=== PATIENT | male | born 1945 | race Hispanic/Latino ===

== ENCOUNTER 2019-03-08 20:06 | Emergency (ER) | payer MEDICARE ==
--- NOTE | 2019-03-08 21:51 | EDPHYS ---
Physician Documentation [facility] Name: Renzo Tam Age: 73 yrs Sex: Male : 1945 Arrival Date: 03/08/2019 Time: 20:08 Bed 24 Private MD: Robe Momin E ED Physician Chris Alarcon HPI: 03/08 20:52 This 73 yrs old Male presents to ER via Ambulatory with complaints of Fever. pm1 20:52 The patient reports fever, that was measured at 101 degrees Fahrenheit. Onset: The pm1 symptoms/episode began/occurred today. Modifying factors: Recent medications: Other Is currently taking ear drops for an ear infection. Saw Dr. Momin yesterday. Associated signs and symptoms: Pertinent positives: cough, earache, Pertinent negatives: chest pain, headache, nausea, skin rash, shortness of breath, sore throat, vomiting. The patient has not experienced similar symptoms in the past. The patient has been recently seen by a physician: the patient's primary care provider, Diagnosed with ear infection and prescribed ear drops. Historical: - Allergies: 20:17 No Known Allergies; jd3 - Home Meds: 20:17 amlodipine oral [Active]; losartan oral oral [Active]; doxazosin oral oral [Active]; jd3 - PMHx: 20:17 High Cholesterol; Hypertension; jd3 - PSHx: 20:17 right shoulder sx - rotator cuff; jd3 - Immunization history:: Adult Immunizations up to date. - Coronavirus screen:: The patient has NOT traveled to [place], [place], or [place] in the past 14 days. The patient has NOT had contact with known/suspected case of Coronavirus? Proceed with normal triage procedures. - Social history:: Smoking status: Patient denies any tobacco usage or history of. - Ebola Screening: : Patient negative for fever greater than or equal to 101.5 degrees Fahrenheit, and additional compatible Ebola Virus Disease symptoms. ROS: 20:52 Eyes: Negative for injury, pain, redness, and discharge. pm1 20:52 Neck: Negative for injury, pain, and swelling, Cardiovascular: Negative for chest pain, palpitations, and edema. 20:52 Abdomen/GI: Negative for abdominal pain, nausea, vomiting, diarrhea, and constipation, Back: Negative for injury and pain, MS/Extremity: Negative for injury and deformity, Skin: Negative for injury, rash, and discoloration, Neuro: Negative for headache, weakness, numbness, tingling, and seizure. 20:52 Constitutional: Positive for body aches, fever. 20:52 ENT: Positive for ear pain, Negative for difficulty swallowing, difficulty handling secretions, hoarseness. 20:52 Respiratory: Positive for cough, Negative for shortness of breath, sputum production, wheezing. Exam: 20:52 Constitutional: This is a well developed, well nourished patient who is awake, alert, pm1 and in no acute distress. Head/Face: Normocephalic, atraumatic. Eyes: Pupils equal round and reactive to light, extra-ocular motions intact. Lids and lashes normal. Conjunctiva and sclera are non-icteric and not injected. Cornea within normal limits. Periorbital areas with no swelling, redness, or edema. 20:52 Neck: Trachea midline, no thyromegaly or masses palpated, and no cervical lymphadenopathy. Supple, full range of motion without nuchal rigidity, or vertebral point tenderness. No Meningismus. Chest/axilla: Normal chest wall appearance and motion. Nontender with no deformity. No lesions are appreciated. Cardiovascular: Regular rate and rhythm with a normal S1 and S2. No gallops, murmurs, or rubs. Normal PMI, no JVD. No pulse deficits. Respiratory: Lungs have equal breath sounds bilaterally, clear to auscultation and percussion. No rales, rhonchi or wheezes noted. No increased work of breathing, no retractions or nasal flaring. Abdomen/GI: Soft, non-tender, with normal bowel sounds. No distension or tympany. No guarding or rebound. No evidence of tenderness throughout. Back: No spinal tenderness. No costovertebral tenderness. Full range of motion. Skin: Warm, dry with normal turgor. Normal color with no rashes, no lesions, and no evidence of cellulitis. MS/ Extremity: Pulses equal, no cyanosis. Neurovascular intact. Full, normal range of motion. 20:52 ENT: External ear(s): are unremarkable, Ear canal(s): are normal, TM's: bulging, on the left, erythema, that is mild, on the left, Nose: is normal, Posterior pharynx: Airway: normal, no evidence of obstruction, Tonsils: bilaterally enlarged, with erythema, no exudate, no ulcerations, peritonsillar mass, is not appreciated. 20:52 Neuro: Orientation: is normal, Motor: is normal, moves all fours. Vital Signs: 20:17 BP 161 / 73; Pulse 81; Resp 17 S; Temp 99.0(O); Pulse Ox 95% on R/A; Weight 72.57 kg jd3 (R); Height 5 ft. 4 in. (162.56 cm) (R); Pain /; 22:19 BP 155 / 78; Pulse 80; Resp 18; Temp 98; Pulse Ox 100% on R/A; mg2 20:17 Body Mass Index 27.46 (72.57 kg, 162.56 cm) jd3 MDM: 20:38 Patient medically screened. pm1 21:49 Data reviewed: vital signs. Data interpreted: Pulse oximetry: on room air is 95 %. pm1 Interpretation: normal. Counseling: I had a detailed discussion with the patient and/or guardian regarding: the historical points, exam findings, and any diagnostic results supporting the discharge/admit diagnosis, lab results, the need for outpatient follow up, to return to the emergency department if symptoms worsen or persist or if there are any questions or concerns that arise at home. 03/08 20:52 Order name: Flu pm1 03/08 20:52 Order name: Strep pm1 03/08 20:52 Order name: Influenza Screen (A ; Complete Time: 21:47 EDMS 03/08 20:52 Order name: Group A Streptococcus Rapid Sc; Complete Time: 21:47 EDMS Administered Medications: 21:56 Drug: Rocephin (cefTRIAXone) 1 grams Route: IM; Site: right gluteus; mg2 22:10 Follow up: Response: No adverse reaction mg2 Disposition: 03/08/19 21:49 Discharged to Home. Impression: Streptococcal pharyngitis, Otitis media, unspecified, left ear. - Condition is Stable. - Discharge Instructions: Otitis Media, Adult, Strep Throat. - Prescriptions for Amoxicillin 500 mg Oral Capsule - take 1 capsule by ORAL route every 8 hours for 10 days; 30 tablet. Ultracet 37.5- 325 mg Oral Tablet - take 1 tablet by ORAL route every 6 hours - for up to 5 days; do not exceed 8 tablets per day.; 15 tablet. - Medication Reconciliation Form, Thank You Letter, Antibiotic Education, Prescription Opioid Use form. - Follow up: Emergency Department; When: As needed; Reason: Worsening of condition. Follow up: Private Physician; When: 2 - 3 days; Reason: Recheck today's complaints, Continuance of care, Re-evaluation by your physician. - Problem is new. - Symptoms have improved. Addendum: 03/10/2019 07:48 Co-signature as Attending Physician, Chris Alarcon MD I agree with the assessment and t w4 plan of care. Signatures: Dispatcher [employer] EDMS Darryl Suarez, JESSICA BALLISTICS TEACHER pm1 Dread Ibarra, RN RN jd3 Chris Alarcon MD MD tw4 Jerome Winn RN RN mg2 Corrections: (The following items were deleted from the chart) 02 21:50 21:49 03/08/2019 21:49 Discharged to Home. Impression: Streptococcal pharyngitis. pm1 Condition is Stable. Forms are Medication Reconciliation Form, Thank You Letter, Antibiotic Education, Prescription Opioid Use. Follow up: Emergency Department; When: As needed; Reason: Worsening of condition. Follow up: Private Physician; When: 2 - 3 days; Reason: Recheck today's complaints, Continuance of care, Re-evaluation by your physician. Problem is new. Symptoms have improved. pm1 22:21 21:50 03/08/2019 21:49 Discharged to Home. Impression: Streptococcal pharyngitis; mg2 Otitis media, unspecified, left ear. Condition is Stable. Forms are Medication Reconciliation Form, Thank You Letter, Antibiotic Education, Prescription Opioid Use. Follow up: Emergency Department; When: As needed; Reason: Worsening of condition. Follow up: Private Physician; When: 2 - 3 days; Reason: Recheck today's complaints, Continuance of care, Re-evaluation by your physician. Problem is new. Symptoms have improved. pm1
--- NOTE | 2019-03-08 21:51 | ER ---
Nurse's Notes [facility] Name: Renzo Tam Age: 73 yrs Sex: Male : 1945 Arrival Date: 03/08/2019 Time: 20:08 Bed 24 Private MD: Robe Momin E Diagnosis: Streptococcal pharyngitis;Otitis media, unspecified, left ear Presentation: 03/08 20:11 Presenting complaint: Patient states: "I have had a fever for 3-4 hours now. I had a jd3 recent ear infection, but nothing else. the fever was 101 before coming to the ER. The ear doctor gave me Cortisporin for both my ears.". Transition of care: patient was not received from another setting of care. Onset of symptoms was March 08, 2019. Risk Assessment: Do you want to hurt yourself or someone else? Patient reports no desire to harm self or others. Initial Sepsis Screen: Does the patient meet any 2 criteria? No. Patient's initial sepsis screen is negative. Does the patient have a suspected source of infection? No. Patient's initial sepsis screen is negative. Care prior to arrival: None. 20:11 Method Of Arrival: Ambulatory jd3 20:11 Acuity: GUIDO 4 jd3 Historical: - Allergies: 20:17 No Known Allergies; jd3 - Home Meds: 20:17 amlodipine oral [Active]; losartan oral oral [Active]; doxazosin oral oral [Active]; jd3 - PMHx: 20:17 High Cholesterol; Hypertension; jd3 - PSHx: 20:17 right shoulder sx - rotator cuff; jd3 - Immunization history:: Adult Immunizations up to date. - Coronavirus screen:: The patient has NOT traveled to [place], [place], or [place] in the past 14 days. The patient has NOT had contact with known/suspected case of Coronavirus? Proceed with normal triage procedures. - Social history:: Smoking status: Patient denies any tobacco usage or history of. - Ebola Screening: : Patient negative for fever greater than or equal to 101.5 degrees Fahrenheit, and additional compatible Ebola Virus Disease symptoms. Screenin:34 Abuse screen: Denies threats or abuse. Denies injuries from another. Nutritional mg2 screening: No deficits noted. Tuberculosis screening: No symptoms or risk factors identified. Fall Risk None identified. Assessment: 21:35 General: Appears in no apparent distress. comfortable, Behavior is calm, cooperative. mg2 Pain: Denies pain. Neuro: Level of Consciousness is awake, alert, obeys commands, Oriented to person, place, time, situation. Cardiovascular: Capillary refill < 3 seconds Patient's skin is warm and dry. Respiratory: Airway is patent Respiratory effort is even, unlabored, Respiratory pattern is. GI: No signs and/or symptoms were reported involving the gastrointestinal system. : No signs and/or symptoms were reported regarding the genitourinary system. EENT: No signs and/or symptoms were reported regarding the EENT system. Derm: Skin is intact, is healthy with good turgor, Skin is pink, warm \\T\\ dry. normal. Musculoskeletal: Circulation, motion, and sensation intact. Capillary refill < 3 seconds. Vital Signs: 20:17 BP 161 / 73; Pulse 81; Resp 17 S; Temp 99.0(O); Pulse Ox 95% on R/A; Weight 72.57 kg jd3 (R); Height 5 ft. 4 in. (162.56 cm) (R); Pain 1/10; 22:19 BP 155 / 78; Pulse 80; Resp 18; Temp 98; Pulse Ox 100% on R/A; mg2 20:17 Body Mass Index 27.46 (72.57 kg, 162.56 cm) jd3 ED Course: 20:08 Patient arrived in ED. es 20:08 Robe Momin MD is Private Physician. es 20:14 Triage completed. jd3 20:17 Arm band placed on. jd3 20:23 Darryl Suarez NP is PHCP. pm1 20:23 Chris Alarcon MD is Attending Physician. pm1 20:26 Jerome Winn, KENDALL is Primary Nurse. mg2 21:34 Patient has correct armband on for positive identification. Pulse ox on. NIBP on. mg2 21:34 No provider procedures requiring assistance completed. Patient did not have IV access mg2 during this emergency room visit. Administered Medications: 21:56 Drug: Rocephin (cefTRIAXone) 1 grams Route: IM; Site: right gluteus; mg2 22:10 Follow up: Response: No adverse reaction mg2 Outcome: 21:49 Discharge ordered by . pm1 22:20 Discharged to home ambulatory, with family. mg2 22:20 Condition: stable 22:20 Discharge instructions given to patient, family, Instructed on discharge instructions, follow up and referral plans. medication usage, Demonstrated understanding of instructions, follow-up care, medications, Prescriptions given X 2. 22:21 Patient left the ED. mg2 Signatures: Bianka Hampton Patrick, NP CLERK GENERAL OFFICE pm1 Dread Ibarra RN RN jd3 Jerome Winn RN RN mg2 Corrections: (The following items were deleted from the chart) 20:18 20:11 Acuity: GUIDO 3 jd3 jgemini
[2019-03-08] MEDS ORDERED: CEFTRIAXONE 1000 MG/VIAL ONE (21:56)
[2019-03-08] MEDS ORDERED: WATER FOR INJ,STERILE 10 ML ONE (21:56)
[2019-03-09 01:03] VITALS: BP 155/78; TEMP 98; O2SAT 100
== END 2019-03-08 22:21 | disposition home or self-care (01) ==
LOC: ER 20:06
DX: J02.0 Streptococcal pharyngitis (principal); H66.92 Otitis media, unspecified, left ear; I10 Essential (primary) hypertension; E78.00 Pure hypercholesterolemia, unspecified
CPT/HCPCS: 87081; 87804; 96372; 99283

== ENCOUNTER 2021-11-21 11:03 | Emergency (ER) | payer MEDICARE, OTHER ==
--- OUTSIDE RECORDS SUMMARY | 2021-11-21 11:05 | XMS REPORT | Continuity of Care Document ---
:1945 Author Organization [facility] t Address [address] [place] [address] Care Team Providers Name Role Phone Yen MCCLURE Can G. Primary Care Physician Colleen LAGUNA, Keron Stephen Attending Clinician [phone] Fatuma Sherman MD Attending Clinician Negin Shaikh NP Attending Clinician Isha Roper MA Attending Clinician Unavailable SHAHAB SOLOMON Attending Clinician Unavailable SALLY SOSA Attending Clinician Unavailable MD SALLY SOSA Attending Clinician Unavailable JEREMY DELEON Attending Clinician Unavailable JIMBO KO Attending Clinician Unavailable KERON THURSTON Admitting Clinician Unavailable SALLY SOSA Admitting Clinician Unavailable MD SALLY SOSA Admitting Clinician Unavailable JIMBO KO Admitting Clinician Unavailable Payers Payer Name Policy Type Policy Number Effective Date Expiration Date S sissypanchito KELSIE/SARWAT [id number] 2020 MEDICARE ADVANTAGE 00:00:00 Problems This patient has no known problems. Allergies, Adverse Reactions, Alerts Allergy Allergy Status Severity Reaction(s) Onset Inactive Treating Comm ents Source Name Type Date Date Clinician NO KNOWN Drug Active [facility] ALLERGIE Class [facility] of [facility] Family History Family Member Diagnosis Comments Start Date Stop Date Source [facility] Social History Social Habit Start Date Stop Date Quantity Comments Source Alcohol intake 2021-02-18 2021-02-18 Current drinker [facility] 00:00:00 00:00:00 of alcohol Hospital (finding) Alcohol Comment 2020-11-15 2020-11-15 2-3 beers a day [facility] 00:[facility]:00:00 Hospital Tobacco use and 2020-06-16 2020-06-16 Smokeless tobacco [facility] exposure 00:00:00 00:00:00 non-user Hospital Sex Ass[birth year] At [birth year] [facility] Smoking Status Start Date Stop Date Source Never smoked tobacco [facility] Medications Ordered Filled Start Stop Current Ordering Indication Dosage Frequency Signature Comments Components Source Medication Medication Date Date Medication? Clinician (SIG) Name Name omeprazole 2020-02 No [id number] 40mg QD Take 1 [facility] (PriLOSEC) 02-[address] 40 MG 00:00: 00:00 (40 mg Hospita capsule 00 :00 total) by l mouth daily. amLODIPine Yes [facility] (NORVASC) 5 3-11 st mg tablet 00:00: Hospita 00 l doxazosin 2020-0 Yes [facility] (CARDURA) 1 3-11 st MG tablet 00:00: [facility]ospita 00 l losartan 2020-0 Yes [facility] (COZAAR) 3-11 st 100 MG 00:00: Hospita tablet 00 l Vital Signs Vital Name Observation Time Observation Value Comments Source Systolic blood 2021-02-17 19:11:00 160 mm[Hg] [facility] pressure Diastolic blood 2021-02-17 19:11:00 79 mm[facility]Hg[facility] Heart rate 2021-02-17 19:11:00 57 /min [facility] Body temperature 2021-02-17 19:11:00 36.17 Jennifer [facility] Respiratory rate 2021-02-17 19:11:00 15 /min [facility] Oxygen saturation in 2021-02-17 19:11:00 98 /min [facility] Arterial blood by Pulse oximetry Body height 2021-02-17 16:12:00 160 cm [facility] Body weight 2021-02-17 16:12:00 68.312 kg [facility] BMI 2021-02-17 16:12:00 26.68 kg/m2 [facility] Procedures Procedure Date / Time Performing Source Performed Clinician SURGICAL PATHOLOGY REQUEST 2021-02-17 ColleenCurtis dist 18:56:00 [facility] ESOPHAGOGASTRODUODENOSCOPY (EGD) 2021-02-17 Avelina Thurston 17:55:00 [facility] COLONOSCOPY 2021-02-17 [facility]00 [facility] Plan of Care Planned Activity Planned Date Details Comments Source Future Scheduled 2021-11-03 INFLUENZA VACCINE Method [facility] Test 13:01:58 [code = INFLUENZA VACCINE] Future Scheduled 2021-11-03 HEPATITIS B VACCINES Met [facility] Test 13:01:58 (1 of 3 - 3-dose series) [code = HEPATITIS B VACCINES (1 of 3 - 3-dose series)] Future Scheduled 2021-11-03 Hepatitis C screening [facility] Test 13:01:58 (procedure) [code = 343274609] Future Scheduled 2021-11-03 COLONOSCOPY SCREENING [facility] Test 13:01:58 [code = COLONOSCOPY SCREENING] Future Scheduled 2021-11-03 SHINGLES VACCINES (1 [facility] Test 13:01:58 of 2) [code = SHINGLES VACCINES (1 of 2)] Future Scheduled 2021-11-03 65+ [facility]AL [facility] 13:01:58 VACCINE (1 - PCV) [code = 65+ PNEUMOCOCCAL VACCINE (1 - PCV)] Future Scheduled 2021-11-03 COVID-19 VACCINE (4 - [facility] Test 13:01:58 Booster for Moderna series) [code = COVID-19 VACCINE (4 - Booster for Moderna series)] Encounters Start End Encounter Admission Attending Care Care Encounter Source Date/Time Date/Time Type Type Clinicians Facility Department ID 2021-02-17 2021-02-17 [facility], 1.2.840.1 [id number] Method 09:19:00 13:25:00 [facility] [id number] [place] [address] 3.430.2.7 Hospit a .3.728234 l .8 2021-02-17 2021-02-17 Surgery [facility], 1.2.840.1 [id number] [facility] 12:00:00 13:00:[address] [place] 3.430.2.7 Hospit a .3.038867 l .8 2021-02-17 2021-02-17 Anesthesia Fatuma Sherman 1.2.840.1 [id number] [facility] 12:00:00 12:34:00 Event Negin Shaikh 18159.1.[address] 3.430.2.7 Hospit a .3.568058 l .8 2021-02-17 2021-02-17 Outpatient [facility] [address] [place] 00:00:00 00:00:00 NEYAR[address]ISKA [address] 2021-02-17 2021-02-17 Travel 1.2.840.1 [id number] [facility] 00:00:00 00:00:[address] 3.430.2.7 0.2.7.3.698 Ho spita .3.885656 084.8 l .8 2020-11-30 2020-11-30 Telephone [place], 1.2.840.1 [id number] [facility] 00:00:00 00:00:00 Isha 99566.1.1 006 s t 3.430.2.7 Hospit a .3.225218 l .8 2020-11-16 2020-11-16 Outpatient [facility] [id number] [place] 00:00:00 00:00:00 NEEHMONICAKA [address] 2020-11-15 2020-11-15 Outpatient [facility] [id number] [place] 00:00:00 00:00:00 TREVORKA [address] 2020-09-03 2020-09-03 Outpatient [facility] [id number] [place] 00:00:00 00:00:00 SHAHAB [address] 2020-07-23 2020-07-23 [facility] [id number] [place] 00:00:00 00:00:00 SHAHAB [address] 2020-07-19 2020-07-19 Outpatient SHEILA, [facility] [id number] [place] 00:00:00 00:00:00 SALLY [address] 2020-07-14 2020-07-14 Outpatient SHEILA, [facility] [id number] [place] 00:00:00 00:00:00 SALLY [address] 2020-06-16 2020-06-16 Outpatient SHEILA, [facility] [id number] [place] 00:00:00 00:00:[address] SALLY [address] 2020-03-31 2020-03-31 Outpatient R ADRIENNE, [facility] [id number] Univers 08:10:00 08:10:00 JEREMY [id number] [facility] 2020-03-31 2020-03-31 Outpatient R ADRINENE [facility] [id number] [facility] 08:10:00 08:10:00 JEREMY [facility] 2020-03-03 2020-03-03 [facility] [id number] Univers 08:20:00 08:20:00 JEREMY [facility] 2015-04-14 2015-04-15 Outpatient AWAR, [facility] [id number] [place] 00:00:00 00:00:00 JIMBO [address] Results Test Description Test Time Test Comments Results Result Comments Source Surgical pathology request 2021-02-21 19:37:41 Test Item Value Reference Range Interpretation Comme nts Case number (test code = [id number]) [id number] Surgical pathology report (test code = See link below for PDF Lab R eport 7093) Result status (test code = 0148794) This is Final Report for [id number] [facility] [Presence] in Respiratory specimen by LEOBARDO with probe [id number] 18:45:09 Test Item Value Reference Range Interpretation Comments SARS-CoV-2 (COVID-19) RNA Not detected Not-Detected [Presence] in Respiratory specimen by LEOBARDO with probe detection (test code = 44993-0) Whether patient is employed in a healthcare setting (test code = 62738-9) Whether the patient has symptoms related to condition of interest (test code = 83301-2) Patient was hospitalized because of this condition (test code = 00808-5) Whether the patient was admitted to intensive care unit (ICU) for condition of interest (test code = 38644-9) Whether patient resides in a congregate care setting (test code = 00016-5)
[2021-11-21 12:26] LABS: Absolute Lymphocytes (CBC) 2.1 K/uL (0.7-4.9); Hematocrit 37.9 % (39.6-49.0); Lymphocytes % 27.9 % (15.3-44.8); MCV 83.6 fL (80-100); MPV 7.9 fL (7.6-11.3); RBC Red Blood Cell Count 4.53 M/uL (4.33-5.43)
--- NOTE | 2021-11-21 12:36 | RAD REPORT ---
EXAM DESCRIPTION: RAD - Chest Single View - 11/21/2021 12:30 pm CLINICAL HISTORY: CHEST PAIN Chest pain. COMPARISON: Chest Single View dated 02/10/2016; Chest Single View dated 02/08/2016; CHEST SINGLE VIEW da pablo 05/01/2010; CHEST PA AND LAT 2 VIEW dated 04/20/2010 FINDINGS: Portable technique limits examination quality. The lungs are grossly clear. The heart is normal in size. No displaced fractures.Degenerative changes are present in both shoulders. IMPRESSION: No acute intrathoracic process suspected.
[2021-11-21] MEDS ORDERED: LEVALBUTEROL 1.25 MG/3 ML NEB ONE (12:39)
[2021-11-21 12:45] LABS: Potassium 4.2 mmol/L (3.5-5.1); Troponin High Sensitivity 7.2 pg/mL (<58.9)
--- NOTE | 2021-11-21 13:53 | RAD REPORT ---
EXAM DESCRIPTION: CT - Head Brain Wo Cont - 11/21/2021 1:48 pm CLINICAL HISTORY: dizziness Headache, drowsiness, dizziness COMPARISON: No comparisons TECHNIQUE: All CT scans are performed using dose optimization technique as appropriate and may inclu de automated exposure control or mA/KV adjustment according to patient size. FINDINGS: No intracranial hemorrhage, hydrocephalus or extra-axial fluid collection.No areas of brai n edema or evidence of midline shift. Small amount of fluid is seen in both maxillary antra. The calvarium is intact. IMPRESSION: No acute intracranial abnormality.
--- NOTE | 2021-11-21 14:46 | RAD REPORT ---
EXAM DESCRIPTION: CT - Chest For Pe Angio - 11/21/2021 2:25 pm CLINICAL HISTORY: Chest pain. sob, elevated d-dimer COMPARISON: CTANGIO CHEST FOR PE dated 05/01/2010 TECHNIQUE: CT angiogram of the pulmonary arteries was performed with MIP. All CT scans are performed using dose optimization technique as appropriate and may include automated exposure control or mA/KV adjustment according to patient size. FINDINGS: No evidence of pulmonary thromboembolism. No acute aortic finding demonstrated. Aortic atherosclerosis. The lungs are mildly emphysematous but clear. No significant pericardial or pleural fluid. No concerning bony finding. IMPRESSION: No evidence of pulmonary thromboembolism. No acute lung findings.
[2021-11-21] MEDS ORDERED: ACETAMINOPHEN 325 MG TABLET ONE (15:00)
[2021-11-21] MEDS ORDERED: LORAZEPAM 1 MG TABLET ONE (15:01)
--- NOTE | 2021-11-21 15:47 | EDPHYS ---
Physician Documentation [facility] Name: Renzo Tam Age: 76 yrs Sex: Male : 1945 Arrival Date: 11/21/2021 Time: 11:06 Bed 28 Private MD: ED Physician Gracy Neil HPI: 11/21 11:36 This 76 yrs old Male presents to ER via Ambulatory with complaints of jmm Shortness Of Breath, Dizziness. 11:36 The patient has shortness of breath with light activity. Onset: The symptoms/episode jmm began/occurred gradually, 1 week(s) ago. Duration: The symptoms are continuous. 6-year-old male with history of hyperlipidemia and hypertension the presents emerged department with complaints of cough, congestion, shortness of breath began approximately week ago. Patient was prescribed oral antibiotics and Singulair with little relief. Patient states having a near syncopal episode. Denies weakness. Patient states having similar episode approximately 10 years ago when diagnosed with a panic attack.. Historical: - Allergies: 11:33 No Known Allergies; vg1 - Home Meds: 11:33 amlodipine oral [Active]; doxazosin Oral [Active]; atorvastatin 20 mg Oral tab 1 tab vg1 once daily [Active]; losartan Oral [Active]; - PMHx: 11:33 High Cholesterol; Hypertension; vg1 - Immunization history:: Client reports receiving the 2nd dose of the Covid vaccine. - Social history:: Smoking status: Patient denies any tobacco usage or history of. ROS: 11:36 Constitutional: Negative for fever, chills, and weight loss. jmm 11:36 ENT: Positive for sinus congestion. 11:36 Cardiovascular: Positive for chest pain. 11:36 Respiratory: Positive for cough, shortness of breath. 11:36 All other systems are negative. Exam: 11:36 Constitutional: This is a well developed, well nourished patient who is awake, alert, jmm and in no acute distress. Head/Face: atraumatic. Eyes: EOMI, no conjunctival erythema appreciated ENT: Moist Mucus Membranes Neck: Trachea midline, Supple Chest/axilla: Normal chest wall appearance and motion. Cardiovascular: Regular rate and rhythm. No edema appreciated Respiratory: Normal respirations, no respiratory distress appreciated Abdomen/GI: Non distended Back: Normal ROM Skin: General appearance color normal MS/ Extremity: Moves all extremities, no obvious deformities appreciated, no edema noted to the lower extremities Neuro: Awake and alert Psych: Behavior is normal, Mood is normal, Patient is cooperative and pleasant Vital Signs: 11:28 BP 157 / 70; Pulse 60; Resp 24; Temp 98.3(O); Pulse Ox 98% on R/A; Weight 70.31 kg; 1 Height 5 ft. 3 in. (160.02 cm); Pain 0/10; 12:30 BP 149 / 58; Pulse 52; Resp 16; Pulse Ox 100% on R/A; em6 15:11 BP 160 / 69; Pulse 65; Resp 16; Pulse Ox 100% ; em6 11:28 Body Mass Index 27.46 (70.31 kg, 160.02 cm) [facility] MDM: 11:48 Patient medically screened. [facility] 15:46 Data reviewed: vital signs, nurses notes. Counseling: I had a detailed discussion with [facility] the patient and/or guardian regarding: the historical points, exam findings, and any diagnostic results supporting the discharge/admit diagnosis, lab results, radiology results, the need for outpatient follow up, to return to the emergency department if symptoms worsen or persist or if there are any questions or concerns that arise at home. ED course: Labs and imaging studies unremarkable. Patient advised follow-up with PCP for reevaluation. Patient understood and agrees plan of care. 11/21 11:36 Order name: Basic Metabolic Panel; Complete Time: 12:51 [facility] 11/21 11:36 Order name: CBC with Diff; Complete Time: 12:35 [facility] 11/21 11:36 Order name: Troponin HS; Complete Time: 12:51 [facility] 11/21 11:50 Order name: SARS-COV-2 RT PCR (Document "Date of Onset" if Symptomatic); Complete Time: [facility] 13:10 11/21 12:13 Order name: Influenza Screen (a \\T\\ B); Complete Time: 13:20 [facility] 11/21 13:12 Order name: D-Dimer; Complete Time: 14:06 [facility] 11/21 11:36 Order name: XRAY Chest (1 view); Complete Time: 12:37 [facility] 11/21 13:41 Order name: Head Brain Wo Cont; Complete Time: 14:06 [facility] 11/21 14:10 Order name: Chest For Pe Angio; Complete Time: 14:48 [facility] 11/21 11:36 Order name: EKG; Complete Time: 11:36 [facility] 11/21 11:36 Order name: Cardiac monitoring; Complete Time: 11:43 [facility] 11/21 11:36 Order name: EKG - Nurse/Tech; Complete Time: 11:43 [facility] 11/21 11:36 Order name: IV Saline Lock; Complete Time: 12:36 [facility] 11/21 11:36 Order name: Labs collected and sent; Complete Time: 12:36 [facility] 11/21 11:36 Order name: O2 Per Protocol; Complete Time: 12:36 [facility] 11/21 11:36 Order name: O2 Sat Monitoring; Complete Time: 12:36 vg1 Administered Medications: 12:45 Drug: Xopenex (levalbuterol) (3) 1.25 mg Route: Inhalation; em6 13:40 Follow up: Response: No adverse reaction em6 15:05 Drug: Acetaminophen 650 mg Route: PO; em6 15:56 Follow up: Response: No adverse reaction em6 15:08 Not Given (Physician Discretion): Ativan (LORazepam) 1 mg IVP once em6 15:08 Drug: Ativan (LORazepam) 1 mg Route: PO; em6 15:57 Follow up: Response: No adverse reaction; RASS: Alert and Calm (0) em6 Disposition Summary: 11/21/21 15:47 Discharge Ordered Location: Home jmm Condition: Stable jmm Diagnosis - Dyspnea, unspecified jmm Followup: jmm - With: Private Physician - When: 2 - 3 days - Reason: Recheck today's complaints, Continuance of care, Re-evaluation by your physician Discharge Instructions: - Discharge Summary Sheet jmm - Shortness of Breath, Adult jmm - Generalized Anxiety Disorder, Adult jmm Forms: - Medication Reconciliation Form jm - Thank You Letter jmm - Antibiotic Education jmm - Prescription Opioid Use jmm Prescriptions: - Hydroxyzine HCl 25 mg Oral Tablet - take 1 tablet by ORAL route every 6 hours As needed; 30 tablet; Refills: 0, jm Product Selection Permitted Addendum: 11/24/2021 03:30 STAFF ATTESTATION STATEMENT: I was immediately available onsite in the emergency s d2 department for consultation in the care of this patient. I did not see or examine this patient. Gracy Neil MD. Signatures: Dispatcher [employer] EDVince Santamaria PA PA jmm Garcia, Victoria RN RN vg1 Gracy Neil MD MD sd2 Prema Calhoun RN RN em6
--- NOTE | 2021-11-21 15:47 | ER ---
Nurse's Notes [facility] Name: Renzo Tam Age: 76 yrs Sex: Male : 1945 Arrival Date: 11/21/2021 Time: 11:06 Bed 28 Private MD: Diagnosis: Dyspnea, unspecified Presentation: 11/21 11:28 Chief complaint: Patient states: SOB and CP x 1week, dizziness began today. States vg1 headache and RYAN ear pain and throat. Went to PCP on Sunday and received to medication of amoc-clav and montelukast. Went for a walk this morning and was feeling fine then ate breakfast and began feeling bad. Coronavirus screen: Vaccine status: Patient reports receiving the 2nd dose of the covid vaccine. Client denies travel out of the [place] in the last 14 days. Ebola Screen: Patient negative for fever greater than or equal to 101.5 degrees Fahrenheit, and additional compatible Ebola Virus Disease symptoms Patient denies exposure to infectious person. Initial Sepsis Screen: Does the patient meet any 2 criteria? RR > 20 per min. Does the patient have a suspected source of infection? No. Patient's initial sepsis screen is negative. Risk Assessment: Do you want to hurt yourself or someone else? Patient reports no desire to harm self or others. Onset of symptoms was November 14, 2021. 11:28 Method Of Arrival: Ambulatory vg1 11:28 Acuity: GUIDO 3 vg1 Triage Assessment: 11:33 General: Appears in no apparent distress. comfortable, Behavior is calm, cooperative. vg1 Pain: Denies pain. Complains of pain in chest Pain currently is 5 out of 10 on a pain scale. Pain began 2-3 days ago. Respiratory: Reports shortness of breath at rest Onset: The symptoms/episode began/occurred 11/14/21, the patient has mild shortness of breath. Historical: - Allergies: 11:33 No Known Allergies; vg1 - Home Meds: 11:33 amlodipine oral [Active]; doxazosin Oral [Active]; atorvastatin 20 mg Oral tab 1 tab vg1 once daily [Active]; losartan Oral [Active]; - PMHx: 11:33 High Cholesterol; Hypertension; vg1 - Immunization history:: Client reports receiving the 2nd dose of the Covid vaccine. - Social history:: Smoking status: Patient denies any tobacco usage or history of. Screenin:47 Abuse screen: Denies threats or abuse. Nutritional screening: No deficits noted. em6 Tuberculosis screening: No symptoms or risk factors identified. Fall Risk IV access (20 points). Total Funez Fall Scale indicates No Risk (0-24 pts). Assessment: 12:46 General: Appears comfortable, Behavior is cooperative. Pain: Complains of pain in chest em6 Pain does not radiate. Pain currently is 1 out of 10 on a pain scale. Quality of pain is described as pressure. Neuro: Level of Consciousness is awake, alert, obeys commands, Oriented to person, place, time, situation, Reports dizziness. Cardiovascular: Heart tones present Rhythm is sinus bradycardia. Respiratory: Airway is patent Respiratory effort is even, unlabored, Respiratory pattern is regular, symmetrical, Breath sounds are clear bilaterally. GI: No signs and/or symptoms were reported involving the gastrointestinal system. : No signs and/or symptoms were reported regarding the genitourinary system. EENT: No signs and/or symptoms were reported regarding the EENT system. Derm: No signs and/or symptoms reported regarding the dermatologic system. Musculoskeletal: Circulation, motion, and sensation intact. 13:50 Reassessment: Patient appears in no apparent distress at this time. No changes from em6 previously documented assessment. Patient and/or family updated on plan of care and expected duration. Pain level reassessed. Patient is alert, oriented x 3, equal unlabored respirations, skin warm/dry/pink. 14:50 Reassessment: Patient appears in no apparent distress at this time. No changes from em6 previously documented assessment. Patient and/or family updated on plan of care and expected duration. Pain level reassessed. Patient is alert, oriented x 3, equal unlabored respirations, skin warm/dry/pink. 15:51 Reassessment: Patient appears in no apparent distress at this time. No changes from em6 previously documented assessment. Patient and/or family updated on plan of care and expected duration. Pain level reassessed. Patient is alert, oriented x 3, equal unlabored respirations, skin warm/dry/pink. Vital Signs: 11:28 BP 157 / 70; Pulse 60; Resp 24; Temp 98.3(O); Pulse Ox 98% on R/A; Weight 70.31 kg; vg1 Height 5 ft. 3 in. (160.02 cm); Pain 0/10; 12:30 BP 149 / 58; Pulse 52; Resp 16; Pulse Ox 100% on R/A; em6 15:11 BP 160 / 69; Pulse 65; Resp 16; Pulse Ox 100% ; em6 11:28 Body Mass Index 27.46 (70.31 kg, 160.02 cm) vg1 ED Course: 11:06 Patient arrived in ED. as 11:33 Triage completed. vg1 11:33 Arm band placed on. vg1 11:38 Vince Becerra PA is PHCP. jmm 11:38 Gracy Neil MD is Attending Physician. [facility] 11:43 EKG completed in triage. Results shown to MD. vg1 12:29 Initial lab(s) drawn, by me, sent to lab. COVID swab sent to lab. Inserted saline lock: jw7 20 gauge in left forearm, using aseptic technique. Blood collected. 12:32 XRAY Chest (1 view) In Process Unspecified. EDMS 12:36 Prema Calhoun, RN is Primary Nurse. em6 12:47 Patient has correct armband on for positive identification. Bed in low position. Call em6 light in reach. Side rails up X2. ornamental painter on. Pulse ox on. NIBP on. Warm blanket given. 13:37 D-Dimer Sent. em6 13:50 Head Brain Wo Cont In Process Unspecified. EDMS 14:27 Chest For Pe Angio In Process Unspecified. EDMS 16:14 No provider procedures requiring assistance completed. IV discontinued, intact, em6 bleeding controlled, No redness/swelling at site. Pressure dressing applied. Administered Medications: 12:45 Drug: Xopenex (levalbuterol) (3) 1.25 mg Route: Inhalation; em6 13:40 Follow up: Response: No adverse reaction em6 15:05 Drug: Acetaminophen 650 mg Route: PO; em6 15:56 Follow up: Response: No adverse reaction em6 15:08 Not Given (Physician Discretion): Ativan (LORazepam) 1 mg IVP once em6 15:08 Drug: Ativan (LORazepam) 1 mg Route: PO; em6 15:57 Follow up: Response: No adverse reaction; RASS: Alert and Calm (0) em6 Medication: 16:14 VIS not applicable for this client. em6 Outcome: 15:47 Discharge ordered by . petrona 16:14 Discharged to home ambulatory, with significant other. em6 16:14 Condition: stable 16:14 Discharge instructions given to patient, significant other, Instructed on discharge instructions, follow up and referral plans. medication usage, Demonstrated understanding of instructions, follow-up care, medications, Prescriptions given X 1. 16:15 Patient left the ED. em6 Signatures: Dispatcher [employer] EDMS Vince Becerra PA PA jmm Martinez, Amelia as Garcia, Victoria, RN RN vg1 Daisy Coughlin jw7 Prema Calhoun, RN RN em6 Corrections: (The following items were deleted from the chart) 12:53 12:46 Pain: Complains of pain in chest Pain does not radiate. Pain currently is 1 out em6 of 10 on a pain scale. Quality of pain is described as pressure, em6 12:53 12:46 Neuro: Level of Consciousness is awake, alert, obeys commands, Oriented to em6 person, place, time, situation, em6 15:57 15:57 Response: No adverse reaction em6 em6
[2021-11-21 16:33] VITALS: TEMP 98.3
[2021-11-21 16:39] VITALS: O2SAT 100
[2021-11-21 16:44] VITALS: BP 160/69
--- NOTE | 2021-11-22 14:05 | EKG ---
Test Date: 2021-11-21 Test Time: 11:44:00 Office Assistant: MEASUREMENT RESULTS: Intervals: Rate: 62 HI: 162 QRSD: 80 QT: 420 QTc: 426 Ironside: P: 58 HI: 162 QRS: 41 T: 8 INTERPRETIVE STATEMENTS: Normal sinus rhythm Normal ECG Compared to ECG 02/10/2016 07:44:02 Sinus bradycardia no longer present Electronically Signed On 11-22-21 14:02:06 CDT by Champ Burdick
== END 2021-11-21 16:15 | disposition home or self-care (01) ==
LOC: ER 11:03
DX: R06.00 Dyspnea, unspecified (principal); I10 Essential (primary) hypertension; E78.00 Pure hypercholesterolemia, unspecified; Z20.822 Contact with and (suspected) exposure to COVID-19
CPT/HCPCS: 93005; 85025; 80048; 36415; 85379; 84484; 87804 ×2; 70450; 71275; 71045; 99285; U0003; Q9967; J7614